=== PATIENT | female | born 1930 | race Caucasian/White ===

== ENCOUNTER 2017-11-18 21:21 | Emergency (ER) | payer MEDICARE, OTHER ==
[~2017-11-18] VITALS: Ht 162.6 cm; Wt 59.1 kg
[~2017-11-18 21:21] MED LIST: BAYER CHEWABLE81 MG PO; CATAPRES0.1 MG PO; COLACE100 MG PO; FERREX 150 PLUS1 CAP PO; FERROUS SULFAT325 MG PO; FLORAJEN3 CAPS460 MG PO; HYDROCODON-ACE1 EAC7 PO; ISOSORBIDE MONO30 M1 PO; LIPITOR80 MG PO; LISINOPRIL10 MG PO; NAMENDA5 MG PO; NITROSTAT0.4 MG PO; NORVASC10 MG PO; PEPCID20 MG PO; PEPCID40 MG PO; PERCOCET 5-3251 TAB PO; PLAVIX75 MG PO; PRINIVIL10 MG PO; RANEXA500 MG PO; TOPROL XL100 MG PO; TOPROL XL50 MG PO; VITAMIN B-1250 MCG PO; VITAMIN D31000 UNIT PO; VITAMIN E200 UNI1 PO; XANAX0.5 MG PO; ZETIA10 MG PO
[2017-11-18 21:27] VITALS: Ht 162.6 cm; Wt 59.1 kg
[2017-11-18] MEDS ORDERED: SEROQUEL25 MG PO (21:41)
[2017-11-18] MEDS ORDERED: ISOSORBIDE DINI10 MG PO (21:47)
[2017-11-18] MEDS ORDERED: VOLTAREN100 GM TOPICAL (21:47)
[2017-11-18] MEDS ORDERED: ACETAMINOPHEN500 M1 PO (21:48)
[2017-11-18] MEDS ORDERED: ZANAFLEX4 MG PO (21:49)
[2017-11-18] MEDS ORDERED: ATIVAN0.5 MG PO (21:49)
[2017-11-19 00:39] VITALS: BP 144/63
== END 2017-11-19 00:39 | disposition home or self-care (01) ==
LOC: D.ER 21:21
DX: F03.90 Unspecified dementia, unspecified severity, without behavioral disturbance, psychotic disturbance, mood disturbance, and anxiety (principal); S00.03XA Contusion of scalp, initial encounter; W18.30XA Fall on same level, unspecified, initial encounter; Y93.89 Activity, other specified; Y92.129 Unspecified place in nursing home as the place of occurrence of the external cause; I10 Essential (primary) hypertension; I25.10 Atherosclerotic heart disease of native coronary artery without angina pectoris; F17.200 Nicotine dependence, unspecified, uncomplicated